=== PATIENT | female | born 1980 | race Caucasian/White ===

== ENCOUNTER 2018-01-17 09:47 | Emergency (ER) | payer BC ==
[~2018-01-17] VITALS: Ht 167.6 cm; Wt 123.5 kg
[2018-01-17 09:51] VITALS: BP 172/72; PULSE 93; RESP 20; TEMP 97.1; O2SAT 100
[2018-01-17 10:37] LABS: BACTERIA, URINE OCC /hpf; BILIRUBIN, URINE NEG (NEG); BLOOD, URINE MOD (NEG); GLUCOSE,URINE 1000 mg/dL (NEG); KETONE, URINE 80 mg/dL (NEG); NITRITE,URINE NEG (NEG); PH, URINE 5.5 (5.0-8.5); SQUAMOUS EPITHELIAL CELL URINE 21 /hpf (0-5); URINE COLOR YELLOW (YELLW/STRAW); URINE LEUKOCYTE ESTERASE LARGE (NEG)
[2018-01-17] MEDS ORDERED: SODIUM CHLOR 0.9% 1000 ML INJ 1,000 ML IV ONE (11:00)
[2018-01-17] MEDS ORDERED: LANTINJ SQ ×2 (11:15→13:03)
[2018-01-17] MEDS ORDERED: METF500T PO (11:15)
[2018-01-17] MEDS ORDERED: LISI-519 PO (11:15)
[2018-01-17] MEDS ORDERED: LIPI10TA PO (11:15)
[2018-01-17 11:47] LABS: AUTOMATED NEUTROPHIL # 4.8 TH/MM3 (1.8-7.7); BASOPHIL # 0.1 TH/MM3 (0-0.2); BASOPHIL % 1.2 % (0.0-2.0); EOSINOPHIL # 0.2 TH/MM3 (0-0.4); HEMATOCRIT 43.4 % (35.0-46.0); HEMOGLOBIN 14.7 GM/DL (11.6-15.3); LYMPH % 24.4 % (9.0-44.0); LYMPHOCYTE # 1.8 TH/MM3 (1.0-4.8); MEAN CELL VOLUME 85.7 FL (80.0-100.0); MEAN CORPUSCULAR HEMOGLOBIN 28.9 PG (27.0-34.0); MEAN CORPUSCULAR HGB CONC 33.8 % (32.0-36.0); MEAN PLATELET VOLUME 8.4 FL (7.0-11.0); MONO % 6.4 % (0.0-8.0); MONOCYTE # 0.5 TH/MM3 (0-0.9); PLATELET COUNT 302 TH/MM3 (150-450); RED BLOOD COUNT 5.07 MIL/MM3 (4.00-5.30); RED CELL DISTRIBUTION WIDTH 14.4 % (11.6-17.2); WHITE BLOOD COUNT 7.4 TH/MM3 (4.0-11.0)
[2018-01-17 12:05] LABS: BICARBONATE 24.9 MEQ/L (21.0-32.0); CALCIUM 8.6 MG/DL (8.5-10.1); CREATININE 0.67 MG/DL (0.50-1.00)
[2018-01-17] MEDS ORDERED: CEPH-460 PO (13:03)
[2018-01-17] MEDS ORDERED: BACT800T5 PO (13:03)
[2018-01-17] MEDS ORDERED: METF1000 PO (13:03)
[2018-01-17] MEDS ORDERED: METR-1 PO (13:03)
--- NOTE | 2018-01-17 13:03 | PD ---
HPI Chief Complaint: Clinical Outcomes Manager Problem/Complaint Time Seen by Provider: 10:39 Travel History International Travel<30 days: No Contact w/Intl Traveler<30days: No Traveled to known affect area: No History of Present Illness HPI Patient is a 38-year-old female who comes in complaining of vaginal discharge and burning as well as small abscesses that have developed there. She says this is been going on for 3 weeks. She has tried [id number] medications without relief. She says she thinks she has a yeast infection. She denies fever chills. She does have history of diabetes and has not had her medications for the past month. She denies fevers. She denies abdominal pain, nausea or vomiting. Severity is mild to moderate. PFSH Past Medical History Diabetes: Yes Patient Takes Glucophage: Yes Hypertension: Yes Tetanus Vaccination: < 5 Years Influenza Vaccination: No ?: Not LMP: 12/14/17 Past Surgical History Surgical History: No Previous Surgery Social History Alcohol Use: No Tobacco Use: Yes (1 PPD) Substance Use: Yes (MARIJUANA) Allergies-Medications (Allergen,Severity, Reaction): Coded Allergies: No Known Allergies (Unverified , 01/17/18) Reported Meds & Prescriptions Reported Meds & Active Scripts Active Reported Lipitor (Atorvastatin Calcium) 10 Mg Tab 10 Mg PO HS Lisinopril 5 Mg Tab 5 Mg PO DAILY Lantus Solostar Pen Inj (Insulin Glargine) 300 Unit/3 Ml Pen 1 Units SQ Metformin (Metformin HCl) 500 Mg Tab 500 Mg PO QID Review of Systems Except as stated in HPI: all other systems reviewed are Neg General / Constitutional: No: Fever, Chills HENT: No: Headaches, Lightheadedness Cardiovascular: No: Chest Pain or Discomfort Respiratory: No: Shortness of Breath Gastrointestinal: No: Nausea, Vomiting, Abdominal Pain Genitourinary: Positive: Discharge Neurologic: No: Weakness, Dizziness Physical Exam Narrative GENERAL: Awake and alert, in no acute distress. SKIN: Focused skin assessment warm/dry. Erythema around the vagina, 1 cm area of induration to the left perennial area, no drainage. No fluctuance. HEAD: Atraumatic. Normocephalic. EYES: Pupils equal and round. No scleral icterus. ENT: Mucous membranes pink and moist. NECK: Trachea midline. No JVD. CARDIOVASCULAR: Regular rate and rhythm. No murmur appreciated. RESPIRATORY: No accessory muscle use. Clear to auscultation. Breath sounds equal bilaterally. GASTROINTESTINAL: Abdomen soft, non-tender, nondistended. : Exam performed in the presence of a nurse. Scant amount of olsen discharge. No cervical lesions. MUSCULOSKELETAL: No obvious deformities. No clubbing. No cyanosis. No edema. NEUROLOGICAL: Awake and alert. No obvious cranial nerve deficits. Motor grossly within normal limits. Normal speech. PSYCHIATRIC: Appropriate mood and affect; insight and judgment normal. Data Data Last Documented VS Vital Signs Date Time Temp Pulse Resp B/P (MAP) Pulse Ox O2 Delivery O2 Flow Rate FiO2 01/17/18 09:51 97.1 93 20 172/72 (105) 100 Orders Orders Urinalysis - C+S If Indicated (01/17/18 09:55) Urine Culture (01/17/18 10:00) Iv Access Insert/Monitor (01/17/18 10:46) Complete Blood Count With Diff (01/17/18 10:46) Basic Metabolic Panel (Bmp) (01/17/18 10:46) Sodium Chlor 0.9% 1000 Ml Inj (Ns 1000 M (01/17/18 11:00) Wet Prep Profile (01/17/18 10:46) Labs Laboratory Tests Test 01/17/18 10:00 01/17/18 11:10 01/17/18 11:20 Urine Color YELLOW Urine Turbidity HAZY Urine pH 5.5 Urine Specific [place] 1.048 Urine Protein TRACE mg/dL Urine Glucose (UA) 1000 mg/dL Urine Ketones 80 mg/dL Urine Occult Blood MOD Urine Nitrite NEG Urine Bilirubin NEG Urine Urobilinogen LESS THAN 2.0 MG/DL Urine Leukocyte Esterase LARGE Urine RBC 4 /hpf Urine WBC 8 /hpf Urine Squamous Epithelial Cells 21 /hpf Urine Bacteria OCC /hpf Microscopic Urinalysis Comment CULTURE INDICATED White Blood Count 7.4 TH/MM3 Red Blood Count 5.07 MIL/MM3 Hemoglobin 14.7 GM/DL Hematocrit 43.4 % Mean Corpuscular Volume 85.7 FL Mean Corpuscular Hemoglobin 28.9 PG Mean Corpuscular Hemoglobin Concent 33.8 % Red Cell Distribution Width 14.4 % Platelet Count 302 TH/MM3 Mean Platelet Volume 8.4 FL Neutrophils (%) (Auto) 65.0 % Lymphocytes (%) (Auto) 24.4 % Monocytes (%) (Auto) 6.4 % Eosinophils (%) (Auto) 3.0 % Basophils (%) (Auto) 1.2 % Neutrophils # (Auto) 4.8 TH/MM3 Lymphocytes # (Auto) 1.8 TH/MM3 Monocytes # (Auto) 0.5 TH/MM3 Eosinophils # (Auto) 0.2 TH/MM3 Basophils # (Auto) 0.1 TH/MM3 CBC Comment DIFF FINAL Differential Comment Blood Urea Nitrogen 6 MG/DL Creatinine 0.67 MG/DL Random Glucose 287 MG/DL Calcium Level 8.6 MG/DL Sodium Level 135 MEQ/L Potassium Level 3.8 MEQ/L Chloride Level 99 MEQ/L Carbon Dioxide Level 24.9 MEQ/L Anion Gap 11 MEQ/L Estimat Glomerular Filtration Rate 99 ML/MIN Clue Cells (Wet Prep) PRESENT Vaginal Trichomonas (Wet Prep) NONE SEEN Vaginal Yeast (Wet Prep) NONE SEEN MDM Medical Decision Making Medical Screen Exam Complete: Yes Emergency Medical Condition: Yes Differential Diagnosis Candidiasis versus BV versus hyperglycemia versus cellulitis Narrative Course Patient is a 38-year-old female who comes in complaining of vaginal discharge and discomfort to her vaginal area. Exam shows some erythema and an indurated area, there is no drainable abscess at this time. IV established, labs sent. Labs show an elevated blood sugar to 287. Anion gap is within normal limits. Given IV fluids. Wet prep is positive for clue cells. She will be discharged with prescriptions for her diabetes medications as well as Bactrim, Keflex, Flagyl. She is advised to avoid alcohol while taking the Flagyl. Advised to drink plenty of fluids. Advised to follow-up with a primary care doctor. Advised return to the ED as needed for any worsening symptoms. Diagnosis Primary Impression: Bacterial vaginosis Additional Impression: Cellulitis Qualified Codes: L03.317 - Cellulitis of buttock Patient Instructions: Bacterial Vaginosis (ED), Cellulitis (ED), General Instructions Additional Instructions: Take all of your antibiotic. Avoid alcohol while taking the antibiotic. Drink plenty of fluids. Take your diabetes medications as directed. Follow-up with a primary care doctor. Return to the ED as needed for any worsening symptoms. Scripts Insulin Glargine Inj (Lantus Solostar Pen Inj) 300 Unit/3 Ml Pen 24 UNITS SQ HS for Blood Sugar Management for 30 Days, PEN 0 Refills Prov: Gershen,Rebecca B MD 01/17/18 Metformin (Metformin) 1,000 Mg Tab 1000 MG PO BIDPC for Blood Sugar Management, #60 TAB 0 Refills Prov: Rebecca Shultz MD 01/17/18 Metronidazole (Flagyl) 500 Mg Tab 500 MG PO BID for Infection for 7 Days, #14 TAB 0 Refills Prov: Rebecca Shultz MD 01/17/18 Cephalexin (Keflex) 500 Mg Capsule 500 MG PO Q6H for Infection for 7 Days, #28 CAP 0 Refills Prov: Rebecca Shultz MD 01/17/18 Sulfamethoxazole-Trimethoprim (Bactrim DS) 800-160 Mg Tab 1 TAB PO BID for Infection, #14 TAB 0 Refills Prov: Rebecca Shultz MD 01/17/18 Disposition: 01 DISCHARGE HOME Condition: Stable Rebecca Shultz MD Jan 17, 2018 13:03
== END 2018-01-17 14:40 | disposition home or self-care (01) ==
LOC: NEPD 09:47
DX: N76.0 Acute vaginitis (principal); B96.89 Other specified bacterial agents as the cause of diseases classified elsewhere; L03.317 Cellulitis of buttock; E11.9 Type 2 diabetes mellitus without complications; I10 Essential (primary) hypertension; F17.200 Nicotine dependence, unspecified, uncomplicated; F12.90 Cannabis use, unspecified, uncomplicated
CPT/HCPCS: 80048; 81001; 85025; 87086; 87210; 96360; 99284; J7030